=== PATIENT | female | born 1945 | race Two or more races ===

== ENCOUNTER 2021-07-02 15:24 | Emergency (ER) | payer MEDICARE, OTHER ==
[~2021-07-02] VITALS: Ht 157.5 cm; Wt 88.5 kg
[2021-07-02 16:55] VITALS: BP 108/52
[2021-07-02] MEDS ORDERED: ACETAMINOPHEN 500 MG TAB PO ONE (17:15)
== END 2021-07-02 17:52 | disposition home or self-care (01) ==
LOC: ER 15:24
DX: S46.911A Strain of unspecified muscle, fascia and tendon at shoulder and upper arm level, right arm, initial encounter (principal); W18.2XXA Fall in (into) shower or empty bathtub, initial encounter; Y93.89 Activity, other specified; Y92.091 Bathroom in other non-institutional residence as the place of occurrence of the external cause; Y99.8 Other external cause status
CPT/HCPCS: 70450; 70486; 72125; 73030